=== PATIENT | male | born 1965 | race Hispanic/Latino ===

== ENCOUNTER 2025-08-15 07:50 | Emergency (ER) | payer BC ==
[2025-08-15 08:09] LABS: #Basophils 0.2 thou/uL (0.0-0.2); #Eosinophils 0.1 thou/uL (0.0-0.7); #Lymphocytes 0.9 thou/uL (1.20-3.40); #Monocytes 0.4 thou/uL (0.11-0.59); #Neutrophils 11.6 thou/uL (1.40-6.50); %Basophils 1.3 % (0.0-1.0); %Eosinophils 1.0 % (0.0-10.0); %Lymphocytes 6.8 % (21.0-51.0); %Monocytes 3.3 % (0.0-10.0); %Neutrophils 87.6 % (42.0-75.0); Hematocrit 45.1 % (42.0-52.0); Hemoglobin 16.5 g/dL (14.0-18.0); Mean Corpuscular Hemoglobin 31.6 pg (27.0-31.0); Mean Corpuscular Volume 86.1 fl (78.0-98.0); Platelet Count 224 10x3/uL (130-400); Red Blood Cell (RBC) Count 5.23 mill/uL (4.70-6.10); White Blood Cell (WBC) Count 13.3 10x3/uL (4.8-10.8)
[2025-08-15] MEDS ORDERED: Mag-Al Plus 1200/1200/120 MG (30 mL) UDCUP ONE (08:10)
[2025-08-15] MEDS ORDERED: Sucralfate 1 GM TAB ONE (08:10)
[2025-08-15] MEDS ORDERED: Lidocaine Viscous Sol 2% 15 ml UD Cup ONE (08:10)
[2025-08-15] MEDS ORDERED: Famotidine 20 MG TAB ONE (08:10)
[2025-08-15 08:23] LABS: ALT (SGPT) 7 U/L (Less than 45); AST (SGOT) 19 U/L (11-34); Albumin 4.3 g/dL (3.1-4.5); Alkaline Phosphatase 82 U/L (40-110); Anion Gap 17 mmol/L (10-20); BUN (Urea Nitrogen) 12 mg/dL (8.4-25.7); Bilirubin, Total 0.6 mg/dL (0.3-1.2); Calc. Creatinine Clearance 0 mL/min (70-130); Calcium 9.3 mg/dL (7.8-10.44); Carbon Dioxide 22 mmol/L (22-29); Chloride 108 mmol/L (98-107); Globulin 2.7 g/dL (2.4-3.5); Glucose 173 mg/dL (70-105); Lipase 29 U/L (8-78); Potassium 3.8 mmol/L (3.5-5.1); Sodium 143 mmol/L (136-145)
[2025-08-15] MEDS ORDERED: LevoFLOXacin 750 mg/D5W 150 ml Premix Bag ONE (10:09)
[2025-08-15] MEDS ORDERED: Pantoprazole 40 MG VIAL ONE (10:09)
[2025-08-15] MEDS ORDERED: Iopamidol 370 76% 100 ML VIAL ONE (10:38)
== END 2025-08-15 12:59 | disposition home or self-care (01) ==
LOC: BURERS 07:50
DX: K57.32 Diverticulitis of large intestine without perforation or abscess without bleeding (principal)
CPT/HCPCS: 36415; 74177; 80053; 83690; 85025; 93005; 96365; 96375; 96376; J1956; J2470; J3010; Q9967